=== PATIENT | male | born 1970 | race Caucasian/White ===

== ENCOUNTER 2017-09-13 15:49 | Inpatient (IN) ==
[2017-09-13 17:27] VITALS: BMI 21.2
[2017-09-13] MEDS ORDERED: INSULIN REGULAR, HUMAN 100 UNIT in NS 100 ML IV PRN (17:44)
--- NOTE | 2017-09-13 18:03 | History & Physical Report ---
History of Present Illness Date: 09/13/17 HPI: presented to [facility] d/t [facility] and was found to be in DKA. Pt is able to provide very little hx as he is somnolent and no family is by bedside. Pt is able to deny cp or sob. The report gotten from OSH was that pt was out of insulin and non-compliant and the etiology of the dka is likely non-adherence. No other significant PMH was reported. Review of Systems Review of systems: Unable to obtain ROS Past Medical History Medical History: Medical History Erectile dysfunction HTN (hypertension) Hypercholesterolemia IDDM (insulin dependent diabetes mellitus) adult onset in 2007 Family History: Family History Father High blood pressure Paternal Grandfather , at age 41 CAD (coronary artery disease) Family History: As Above - Social History Smoking status: Former smoker Medications Home Medications Medication Instructions Recorded Confirmed Type lisinopril 10 mg tablet 10 mg PO BID tab 10/08/16 History Augmentin (amoxicillin 875 1 tab PO BID #20 tab 11/26/16 Rx mg-potassium clavulanate 125 mg) tablet dextroamphetamine-amphetamine 20 20 mg PO .COMPLEX #60 tab 12/06/16 Rx mg tablet Lantus Solostar (insulin glargine) 40 unit SQ DAILY #15 ml 06/07/17 Rx 100 unit/mL (3 mL) PEN Zocor (simvastatin) 40 mg tablet 40 mg PO HS tab 06/07/17 History Humalog KwikPen (insulin lispro) See Label Instructions SQ .COMPLEX 07/09/17 Rx 100 unit/mL SQ PEN #15 ml Allergies Allergy/AdvReac Type Severity Reaction Status Date / Time milk Allergy Severe anaphylaxis Verified 10/08/16 16:25 acetaminophen [From [place]] Allergy Intermediate Itching Verified 10/08/16 16:27 hydrocodone [From [place]] Allergy Intermediate Itching Verified 10/08/16 16:27 Exam Vital Signs: Pulse Rate 109 H 09/13/17 17:34 Respiratory Rate 22 09/13/17 17:34 Pulse Oximetry 100 09/13/17 17:34 Height/Weight/BMI: Height 5 ft 7 in Weight 61.6 kg Body Mass Index 21.2 - Constitutional Present: mild distress - Routine HEENT Exam Head: Present: normocephalic, atraumatic Eye: Present: EOMI ENT: Present: mucous membranes dry - Routine Respiratory Exam Present: CTA bilaterally. Absent: wheezes - Routine Cardiovascular Exam Present: RRR, no murmur, tachycardia - Routine Abdominal Exam Present: soft, non distended, non tender - Routine Extremities Exam Present: no edema. Absent: cyanosis, clubbing - Routine Skin Exam Present: intact, dry. Absent: erythema - Routine Neurological Exam Present: altered mental status Results - Labs CBC & Chem 7: 09/13/17 17:41 09/13/17 17:41 - ABG Interpretation ABG results: 09/13/17 17:30 ABG pH 7.304 L ABG pCO2 30 L ABG pO2 90.9 ABG HCO3 14.9 L ABG Total CO2 15.8 L ABG O2 Saturation 96.3 ABG Base Excess -10.2 L Assessment and Plan Assessment and Plan: DKA -Likely 2/2 to non-adherence -Insulin drip, IV fluids, Q2H bmp -s/p 3L at OSH -Order CXR, trop, UA--to rule out other causes of DKA DM -Unclear what doses of insulin he's on -A1C reported to be 11 at OSH Ppx -SCDs - Physician Narrative Narrative: Date: 09/13/17 Time: 1800 Hospital Course Summary Disclaimer: The visit summary below is not to be considered part of the above Progress Note.
[2017-09-13] MEDS ORDERED: POTASSIUM CHLORIDE INJ 20 MEQ, POTASSIUM PHOSPHATE (mEq) 20 MEQ in D5NS 1,000 ML IV SCH (18:15)
[2017-09-13] MEDS ORDERED: POTASSIUM PHOSPHATE (mMol) 30 MMOL in NS 500ml 500 ML IV SCH (22:01)
[2017-09-14] MEDS ORDERED: INSULIN DETEMIR 100unit/ml INJECTION SQ ONE (00:41)
[2017-09-14] MEDS ORDERED: INSULIN ASPART 100unit/ml INJECTION SQ PRN (00:55)
[2017-09-14] MEDS: POTASSIUM CHLORIDE INJ 20 MEQ, POTASSIUM PHOSPHATE (mEq) 20 MEQ in D5-1/2NS 1,000 ML IV SCH ×2 (01:49→09:07)
--- NOTE | 2017-09-14 11:37 | Progress Note ---
- Date 09/14/17 Subjective: Pt still somnolent this am but nurse reports he has gotten up to go to the bathroom on his earlier and also he was awake when they gave him a bath. Pt not answering any questions while sleeping. Objective Vital signs: Temperature 98.0 F 09/14/17 07:00 Pulse Rate 112 H 09/14/17 08:51 Respiratory Rate 26 H 09/14/17 08:00 Blood Pressure 106/72 09/14/17 07:00 Pulse Oximetry 97 09/14/17 08:00 Height/Weight/BMI: Height 5 ft 7 in Weight 62 kg Body Mass Index 21.2 - Constitutional Present: no acute distress - Routine HEENT Exam Head: Present: normocephalic, atraumatic Eye: Present: EOMI - Routine Cardiovascular Exam Present: RRR, no murmur - Routine Abdominal Exam Present: soft, non distended, non tender - Routine Extremities Exam Present: no edema. Absent: cyanosis, clubbing - Routine Skin Exam Present: intact, dry. Absent: erythema - Routine Neurological Exam Present: altered mental status Results - Labs CBC & Chem 7: 09/14/17 04:14 09/14/17 04:21 - ABG Interpretation ABG results: 09/13/17 17:30 ABG pH 7.304 L ABG pCO2 30 L ABG pO2 90.9 ABG HCO3 14.9 L ABG Total CO2 15.8 L ABG O2 Saturation 96.3 ABG Base Excess -10.2 L Assessment and Plan Assessment and Plan: DKA -Resolved -Likely 2/2 to non-adherence -transitioned to 25U lantus and 4U humalog TID -s/p 4L of fluids DM - reported pt is prescribed 40U lantus and of humalog but pt does not take those doses at home -A1C reported to be 11 at OSH -Will restart SC insulin at lower doses and monitor sugars Uninsured -Pt's asked to keep all testing to that what is essential as they are unable to afford this hospitalization -Will try to abide by this request Ppx -SCDs - Physician Narrative Narrative: Date: 09/14/17 Time: 1132 Hospital Course Summary Disclaimer: The visit summary below is not to be considered part of the above Progress Note. Hospital Course: 09/14/17 DKA resolved but pt still not awake but likely just sleeping as pt got ativan overnight and nurse reported pt waking up earlier. Will transfer out of icu and monitor blood glucose levels. noted to minimize any testing d/t cost.
[2017-09-14] MEDS ORDERED: INSULIN ASPART 100unit/ml INJECTION SQ SCH (12:00)
[2017-09-14 12:23] VITALS: TEMP 97.6
[2017-09-14 17:10] VITALS: BP 122/84; PULSE 92; RESP 21; O2SAT 100
[2017-09-14] MEDS ORDERED: INSULIN GLARGINE 100unit/ml INJECTION SQ SCH (21:00)
--- NOTE | 2017-09-16 16:39 | Discharge Summary ---
Discharge Information Date of admission: 09/13/17 17:00 Anticipated date of discharge: 09/15/17 Attending Physician: Jaceklin Cooper MD Primary care physician: Cal Oropeza MD - Laboratory Labs: 09/14/17 04:14 09/14/17 14:03 History of Present Illness HPI: presented to [facility] and was found to be in DKA. Pt is able to provide very little hx as he is somnolent and no family is by bedside. Pt is able to deny cp or sob. The report gotten from OSH was that pt was out of insulin and non-compliant and the etiology of the dka is likely non-adherence. No other significant PMH was reported. Objective Vital signs: Temperature 97.6 F 09/14/17 09:00 Pulse Rate 92 09/14/17 17:00 Respiratory Rate 21 09/14/17 17:00 Blood Pressure 122/84 09/14/17 17:00 Pulse Oximetry 100 09/14/17 17:00 Height/Weight/BMI: Height 5 ft 7 in Weight 62 kg Body Mass Index 21.2 Hospital Course This is a general summary of the patient's hospital course. For more details refer to the complete medical record. Hospital course: Pt was transferred for DKA from [facility] and was treated and did well but was not fully recovered. Pt was told about the importance of monitoring his glucose as well as taking the appropriate amount of insulin. Pt was offered resources with case management in terms of helping to afford his medications but pt noted he wanted to leave AMA. Pt was competent to make his own decisions. Risks and benefits were discussed with pt and then pt left AMA. Discharge Plan - Discharge Disposition Discharge Date: 09/15/17 (Patient left AMA) Disposition: 07 Against Medical Advice *Condition: Stable Reason For Visit (Visit label in EMR): DKA - Discharge Medications *Discharge Medications: No Action Lantus Solostar (insulin glargine) 100 unit/mL (3 mL) PEN 40 unit SQ DAILY # 15 ml Humalog KwikPen (insulin lispro) 100 unit/mL SQ PEN See Label Instructions SQ .COMPLEX #15 ml - Referrals/Follow Up - Patient Handouts - Dismissal Complete Discharge Instructions are:: Complete Physician Narrative - Narrative Attestation Narrative: Date: 09/16/17 Time: 5281
== END 2017-09-14 17:30 | disposition left against medical advice (07) | DRG 639 ==
LOC: CCU 17:00
PROVIDERS: ADMIT Internal Medicine; ATTEND Internal Medicine